=== PATIENT | female | born 1940 | race Caucasian/White ===

== ENCOUNTER 2016-04-28 08:58 | Emergency (ER) | payer MEDICARE, BC ==
[~2016-04-28 08:58] MED LIST: AMLODIPINE BESYL5 MG PO; AMLOPIDINE PO; ASPIR LOW81 MG PO; ASPIR-TRIN325 M1 PO; CARBIDOPA & LEV1 TA1 PO; CARBIDOPA AND L1 OD1 PO; CARBIDOPA PO; COMTAN 200MG T200 MG PO; LEVAQUIN 5500 MG/TA1 PO; LEVOD PO; LEXAPRO 10MG10 MG PO; LISINOPRIL40 MG PO; MIRALAX17 GM PO; NATURE'S BOUNTY1 TAB PO; NORVASC10 M1 PO; NORVASC2.5 MG PO; PREDNISONE20 M1 PO; PROBIOTIC1 EAC1 PO; ROPINIROLE4 MG PO; SYNTHROID0.05 MG PO; SYSTANE 0.4%-0.1 SOL OP; TUSSICAPS 8 MG-1 CER PO; ZOLOFT 50MG50 MG PO
[2016-04-28] MEDS ORDERED: DICLOFENAC SODI75 M2 PO (11:16)
[2016-08-25] MEDS ORDERED: NITROSTAT0.4 M1 SL (11:58)
[2016-08-25] MEDS ORDERED: ZESTORETIC 20-1 EACH PO (11:58)
[2016-08-25] MEDS ORDERED: CARBIDOPA AND L1 OD1 PO (11:59)
[2016-08-25] MEDS ORDERED: REQUIP4 MG PO (11:59)
== END 2016-04-28 11:25 | disposition home or self-care (01) ==
LOC: ED 08:58
DX: R20.2 Paresthesia of skin (principal); R51 Headache; R53.83 Other fatigue; E87.0 Hyperosmolality and hypernatremia
CPT/HCPCS: J1885

== ENCOUNTER → 2016-05-29 | Outpatient (CLI) | payer MEDICARE, BC ==
[~2016-05-29] MED LIST changes: +AMITIZA8 MCG PO; +DICLOFENAC SODI75 M2 PO; +LINZESS145 MCG PO; +LISINOPRIL20 MG PO; +NITROSTAT0.4 M1 SL; +REQUIP4 MG PO; +ZESTORETIC 20-1 EACH PO; +ZOFRAN ODT4 MG PO
== END ==
LOC: RAD 18:56
DX: M25.571 Pain in right ankle and joints of right foot (principal); W19.XXXA Unspecified fall, initial encounter

== ENCOUNTER → 2016-06-16 | Outpatient (CLI) | payer MEDICARE, BC ==
[2016-04-28 11:32] VITALS: BP 138/79
== END ==
LOC: RAD 14:33
DX: K90.49 Malabsorption due to intolerance, not elsewhere classified (principal); E03.4 Atrophy of thyroid (acquired); K52.832 Lymphocytic colitis; E78.00 Pure hypercholesterolemia, unspecified; R20.2 Paresthesia of skin

== ENCOUNTER → 2016-08-25 | Outpatient (CLI) | payer MEDICARE, BC ==
[~2016-08-25] VITALS: Ht 172.7 cm; Wt 65.5 kg
[2016-08-25 11:56] VITALS: BP 138/68
== END ==
LOC: AMSURD 11:25
DX: E21.2 Other hyperparathyroidism (principal); Z01.818 Encounter for other preprocedural examination; E03.9 Hypothyroidism, unspecified

== ENCOUNTER 2016-09-29 07:41 | Emergency (ER) | payer MEDICARE, BC ==
[~2016-09-29] VITALS: Ht 172.7 cm; Wt 64.5 kg
[~2016-09-29 07:41] MED LIST changes: -AMITIZA8 MCG PO; -LINZESS145 MCG PO; -LISINOPRIL20 MG PO; -ZOFRAN ODT4 MG PO
[2016-09-29] MEDS ORDERED: LISINOPRIL20 MG PO (07:52)
[2016-09-29] MEDS ORDERED: AMITIZA8 MCG PO (07:53)
[2016-09-29] MEDS ORDERED: LINZESS145 MCG PO (07:54)
[2016-09-29] MEDS ORDERED: ZOFRAN ODT4 MG PO (11:50)
[2016-09-29 13:03] VITALS: BP 121/60
== END 2016-09-29 12:05 | disposition home or self-care (01) ==
LOC: ED 07:41
DX: E86.0 Dehydration (principal); R19.7 Diarrhea, unspecified; I25.10 Atherosclerotic heart disease of native coronary artery without angina pectoris; I11.0 Hypertensive heart disease with heart failure; I50.9 Heart failure, unspecified; G20 Parkinson's disease
CPT/HCPCS: J7120

== ENCOUNTER → 2016-10-07 | Outpatient (CLI) | payer MEDICARE, BC ==
[2016-09-29 13:03] VITALS: BP 121/60
[~2016-10-07] MED LIST changes: +AMITIZA8 MCG PO; +LINZESS145 MCG PO; +LISINOPRIL20 MG PO; +ZOFRAN ODT4 MG PO
== END ==
LOC: RAD 15:00
DX: I65.22 Occlusion and stenosis of left carotid artery (principal)

== ENCOUNTER → 2016-10-09 | Outpatient (CLI) | payer MEDICARE, BC ==
[2016-09-29 13:03] VITALS: BP 121/60
== END ==
LOC: LAB 08:51
DX: R19.7 Diarrhea, unspecified (principal)

== ENCOUNTER → 2017-01-05 | Outpatient (CLI) | payer MEDICARE, BC ==
[2017-01-05 16:56] LABS: EOS % 0.4 % (1.0-5.0); HEMATOCRIT 32.4 % (37.0-47.0); HEMOGLOBIN 10.8 g/dL (12.5-16.0); LYMPH# 1.1 (1.50-4.00); MEAN CELL VOLUME 92 fl (78-100); MEAN CORPUSCULAR HEMOGLOBIN 31 pg (27-31); MEAN CORPUSCULAR HGB CONC 33 g/dL (33-37); MEAN PLATELET VOLUME 9.4 fl (7.4-10.4); MONO # 0.5 (0.20-0.80); NEU # 3.7 (1.40-6.50); PLATELET COUNT 236 K/mm3 (130-400); RED BLOOD COUNT 3.53 M/mm3 (4.10-5.30); RED CELL DISTRIBUTION WIDTH 13.2 % (11.5-14.5); WHITE BLOOD COUNT 5.3 K/mm3 (4.8-10.8)
[2017-01-05 20:14] LABS: ERYTHROCYTE SEDIMENTATION RATE 12 mm/hr (0-30)
[2017-01-05 21:10] LABS: ALBUMIN 3.9 g/dL (3.5-5.0); BUN/CREATININE RATIO 23.2 (6.0-26.0); CALCIUM 10.4 mg/dL (8.4-10.2); POTASSIUM 3.6 mmol/L (3.6-5.0); TOTAL BILIRUBIN 0.6 mg/dL (0.2-1.3); TOTAL PROTEIN 7.3 g/dL (6.3-8.2)
== END ==
LOC: LAB 15:39
PROVIDERS: Nurse Practitioner Family
DX: R19.5 Other fecal abnormalities (principal)

== ENCOUNTER → 2017-01-06 | Outpatient (CLI) | payer MEDICARE, BC ==
[2017-01-06 10:59] LABS: URINE APPEARANCE CLOUDY; URINE BILIRUBIN NEGATIVE (NEGATIVE); URINE BLOOD TRACE (NEGATIVE); URINE COLOR YELLOW; URINE GLUCOSE NEGATIVE (NEGATIVE); URINE KETONE NEGATIVE (NEGATIVE); URINE LEUKOCYTE ESTERASE NEGATIVE (NEGATIVE); URINE MUCUS PRESENT (NOT PRESENT); URINE NITRATE POSITIVE (NEGATIVE); URINE PROTEIN(semi-quant) TRACE mg/dL (NEGATIVE); URINE UROBILINOGEN NORMAL (NORMAL)
== END ==
LOC: LAB 08:21 → RAD 08:21
PROVIDERS: Nurse Practitioner Family
DX: R19.5 Other fecal abnormalities (principal); R10.11 Right upper quadrant pain; Z90.49 Acquired absence of other specified parts of digestive tract

== ENCOUNTER 2017-01-16 15:24 | Emergency (ER) | payer MEDICARE, BC ==
[~2017-01-16] VITALS: Ht 170.2 cm; Wt 60.5 kg
[2017-01-16] MEDS ORDERED: ALPRAZOLAM0.25 MG PO (15:37)
[2017-01-16] MEDS ORDERED: ZOLOFT 100MG100 MG PO (15:37)
[2017-01-16] MEDS ORDERED: IMODIUM2 MG PO (15:37)
[2017-01-16] MEDS ORDERED: COLESTID 1GM1 G PO (15:47)
[2017-01-16 16:36] LABS: EOS % 0.6 % (1.0-5.0); HEMATOCRIT 31.1 % (37.0-47.0); HEMOGLOBIN 10.4 g/dL (12.5-16.0); LYMPH# 1.2 (1.50-4.00); MEAN CELL VOLUME 92 fl (78-100); MEAN CORPUSCULAR HEMOGLOBIN 31 pg (27-31); MEAN CORPUSCULAR HGB CONC 33 g/dL (33-37); MEAN PLATELET VOLUME 9.5 fl (7.4-10.4); MONO # 0.3 (0.20-0.80); NEU # 3.5 (1.40-6.50); PLATELET COUNT 216 K/mm3 (130-400); RED BLOOD COUNT 3.37 M/mm3 (4.10-5.30); RED CELL DISTRIBUTION WIDTH 13.4 % (11.5-14.5)
[2017-01-16 16:49] LABS: ALBUMIN 3.7 g/dL (3.5-5.0); BUN/CREATININE RATIO 15.9 (6.0-26.0); CALCIUM 9.7 mg/dL (8.4-10.2); POTASSIUM 3.8 mmol/L (3.6-5.0); TOTAL BILIRUBIN 0.6 mg/dL (0.2-1.3); TOTAL PROTEIN 6.7 g/dL (6.3-8.2)
[2017-01-16 17:43] LABS: URINE APPEARANCE CLEAR; URINE COLOR YELLOW
[2017-01-16 17:44] LABS: URINE BILIRUBIN NEGATIVE (NEGATIVE); URINE BLOOD TRACE (NEGATIVE); URINE GLUCOSE NEGATIVE (NEGATIVE); URINE KETONE NEGATIVE (NEGATIVE); URINE LEUKOCYTE ESTERASE NEGATIVE (NEGATIVE); URINE NITRATE NEGATIVE (NEGATIVE); URINE PROTEIN(semi-quant) NEGATIVE (NEGATIVE); URINE UROBILINOGEN NORMAL (NORMAL)
[2017-01-16 18:39] VITALS: BP 115/66
== END 2017-01-16 18:39 | disposition home or self-care (01) ==
LOC: ED 15:24
PROVIDERS: Physician Assistant
DX: R19.7 Diarrhea, unspecified (principal); I10 Essential (primary) hypertension; E03.9 Hypothyroidism, unspecified; K21.9 Gastro-esophageal reflux disease without esophagitis; G20 Parkinson's disease; K91.1 Postgastric surgery syndromes; Z87.891 Personal history of nicotine dependence
CPT/HCPCS: J7120

== ENCOUNTER → 2017-06-02 | Outpatient (CLI) | payer MEDICARE, BC ==
[~2017-06-02] MED LIST changes: +ALPRAZOLAM0.25 MG PO; +CLONAZEPAM0.25 MG PO; +COLESTID 1GM1 G PO; +IMODIUM2 MG PO; +TYLENOL 8 HOUR650 M1 PO; +ZOLOFT 100MG100 MG PO
== END ==
LOC: RAD 16:59
DX: K59.00 Constipation, unspecified (principal); R11.0 Nausea; Z88.0 Allergy status to penicillin; Z88.2 Allergy status to sulfonamides; Z88.8 Allergy status to other drugs, medicaments and biological substances

== ENCOUNTER → 2017-06-02 | Outpatient (CLI) | payer MEDICARE, BC ==
[~2017-06-02] VITALS: Ht 170.2 cm; Wt 60.5 kg
[2017-06-02 19:15] VITALS: BP 149/64
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
== END ==
LOC: AMSURD 18:13
DX: K59.00 Constipation, unspecified (principal)